=== PATIENT | male | born 1960 | race Two or more races ===

== ENCOUNTER 2020-06-29 13:53 | Outpatient (REF) | payer OTHER, SELFPAY | END 2020-06-29 13:54 | disposition home or self-care (01) | LOC: HO.LAB 13:53 | PROVIDERS: PCP Internal Medicine; Visit Provider Internal Medicine | DX: Z20.828 Contact with and (suspected) exposure to other viral communicable diseases (principal) | CPT/HCPCS: 36415; C9803; U0003 ==

== ENCOUNTER 2021-06-22 13:04 | Outpatient (REF) | payer OTHER, SELFPAY ==
[2021-06-22 16:20] LABS: COVID-19 Test Positive (Negative)
== END 2021-06-22 13:05 | disposition home or self-care (01) ==
LOC: HO.LAB 13:04
PROVIDERS: Visit Provider Internal Medicine
DX: Z20.822 Contact with and (suspected) exposure to COVID-19 (principal)
CPT/HCPCS: 36415; 87635; C9803